=== PATIENT | male | born 1995 | race Caucasian/White ===

== ENCOUNTER 2017-04-14 19:05 | Inpatient (IN) | payer MEDICAID, OTHER ==
[~2017-04-14] VITALS: Ht 175.3 cm; Wt 90.2 kg
[2017-04-14 20:13] LABS: Urine RBC None Seen /hpf (0 - 3)
[2017-04-14 20:15] LABS: Prothrombin Time 10.9 sec (9.37-12.3)
[2017-04-14 20:23] LABS: Basophils # (auto) 0 uL; Basophils % (auto) 0.1 % (0.0-2.0); CONDITION Y; Eosinophils # (auto) 0.2 uL; Eosinophils % (auto) 4.1 % (0.0-7.0); Hematocrit 48.1 % (41.0-53.0); Lymphocytes # (auto) 1.5 uL; Mean Corpuscular Hgb Conc. 35.3 g/dL (32.0-36.0); Mean Corpuscular Volume 96.2 fL (80.0-100.0); Mean Platelet Volume 12.4 fL (7.4-10.4); Monocytes # (auto) 0.7 uL; Monocytes % (auto) 15.1 % (0.0-12.0); Neutrophils # (auto) 2.1 uL; Neutrophils % (auto) 46.7 % (37.0-80.0); Platelet Count (auto) 119 10^3/uL (140-450); Red Cell Distribution Width 14.5 % (11.6-16.0); SUSPECT SEE PRINTOUT; White Blood Cell 4.5 10^3/uL (4.4-10.8)
[2017-04-14 20:30] LABS: Albumin 3.5 g/dL (3.4-5.0); BUN/Creatinine Ratio 32.4; Calcium 9.6 mg/dL (8.5-10.1); Potassium 3.4 mmol/L (3.5-5.1)
[2017-04-14 20:33] LABS: Bilirubin, Total 0.2 mg/dL (0.2-1.0)
[2017-04-14 20:55] LABS: Urine Bilirubin Negative (Negative); Urine Blood Negative /uL (Negative); Urine Color Yellow (Yellow); Urine Glucose Normal (Normal); Urine Ketone Negative (Negative); Urine Nitrite Negative (Negative); Urine Urobilinogen Normal (Negative)
[2017-04-14] MEDS ORDERED: SODIUM CHLORIDE 0.9% 1,000 ML IV ONE (21:00)
[2017-04-14 21:06] LABS: Platelet Clumps FEW
[2017-04-14 21:19] LABS: Allen Test Yes; Blood 02Sat 87.4 % (96-100); Blood COHb 0.2 % (0.5-1.5); Blood MetHb 0.2 % (0.0-1.5); HCO3 24.4 mmol/L (22-26.0); HHb 12.5 % (0.0-5.0); MODE TRACH COLLAR; O2Hb 87.1 % (94.0-97.0); PCO2 52.3 mmHg (35.0-45.0); PO2 58.6 mmHg (80.0-100.0); PO2(T) 42.9 mmHg (80.0-100.0); Sample Type Arterial; pH 7.286 (7.350-7.450)
[2017-04-15] MEDS ORDERED: IPRATROPIUM BROM 0.5 MG/2.5ML INH SOL ONE (00:59)
[2017-04-15] MEDS ORDERED: ALBUTEROL SULF 2.5 MG/0.5ML(0.5%) NEB SOLN ONE (00:59)
[2017-04-15] MEDS ORDERED: BUDESONIDE (INHALATION) 0.5 MG/2 ML NEB ONE (01:04)
[2017-04-15] MEDS ORDERED: BUDESONIDE (INHALATION) 0.5 MG/2 ML NEB NEB ONE (01:15)
[2017-04-15] MEDS ORDERED: SODIUM CHLORIDE 0.9% 1,000 ML IV ONE (01:15)
[2017-04-15] MEDS ORDERED: ALBUTEROL SULF 2.5 MG/0.5ML(0.5%) NEB SOLN NEB ONE (01:15)
[2017-04-15] MEDS ORDERED: IPRATROPIUM BROM 0.5 MG/2.5ML INH SOL NEB ONE (01:15)
[2017-04-15] MEDS ORDERED: METOCLOPRAMIDE HCL 10 MG/10ml ORAL soln GT PRN (04:30)
[2017-04-15] MEDS ORDERED: LACTULOSE 20Gm/30ML SOLN PO PRN (04:30)
[2017-04-15] MEDS ORDERED: cefTRIAXone 1GM/50ML D5W 50 ML IV ONE (04:30)
[2017-04-15] MEDS ORDERED: MORPHINE SULFATE 4 MG/ML SYRG IV PRN (04:30)
[2017-04-15] MEDS ORDERED: NITROGLYCERIN 0.4 MG SL TAB SL PRN (04:30)
[2017-04-15] MEDS ORDERED: BACLOFEN 10 MG TAB GT SCH (06:00)
[2017-04-15] MEDS: ALBUTEROL SULF 2.5 MG/0.5ML(0.5%) NEB SOLN NEB SCH ×5 (07:05→22:39)
[2017-04-15] MEDS: IPRATROPIUM BROM 0.5 MG/2.5ML INH SOL NEB SCH ×4 (07:05→22:39)
[2017-04-15] MEDS: cefTRIAXone 1GM/50ML D5W 50 ML IV SCH (09:00)
[2017-04-15 09:05] VITALS: BP 103/63
[2017-04-15] MEDS ORDERED: TOPIRAMATE 100 MG TAB GT SCH (10:00)
[2017-04-15] MEDS: GLYCOPYRROLATE 1 MG GT SCH (10:00)
[2017-04-15] MEDS ORDERED: PHENobarbital 20 MG/5 ML UD GT SCH ×2 (10:00)
[2017-04-15] MEDS: PANTOPRAZOLE SODIUM 40 MG/10 ML VIAL IV SCH (10:23)
[2017-04-15] MEDS: SOD CHL 0.9%/ KCL 20MEQ 1,000 ML IV SCH (12:30)
[2017-04-15 13:04] LABS: Allen Test Yes; Base Excess -3.3 mmol/L (-2.0-2.0); Blood 02Sat 94.3 % (96-100); Blood COHb 0.1 % (0.5-1.5); Blood MetHb 0.3 % (0.0-1.5); HCO3 22.7 mmol/L (22-26.0); HHb 5.7 % (0.0-5.0); MODE TRACH COLLAR; O2Hb 93.9 % (94.0-97.0); PCO2 44.3 mmHg (35.0-45.0); PCO2(T) 44.3 mmHg (35.0-45.0); PO2 74.5 mmHg (80.0-100.0); PO2(T) 74.5 mmHg (80.0-100.0); Room 1018-ERT; Sample Type Arterial; pH 7.328 (7.350-7.450)
[2017-04-15] MEDS ORDERED: ERYTHROMYCIN LACTOBIONATE 250 MG in SODIUM CHL 0.9% 100 ML IV ONE (13:45)
[2017-04-15] MEDS ORDERED: METOCLOPRAMIDE HCL 5MG/ml INJ 2ml VIAL IV SCH (14:00)
[2017-04-15 20:00] VITALS: BP 104/71
[2017-04-15 22:00] VITALS: BP 104/71
[2017-04-15] MEDS: TOPIRAMATE 100 MG TAB GT SCH (22:32)
[2017-04-15] MEDS: BACLOFEN 10 MG TAB GT SCH (22:33)
[2017-04-16] MEDS: PHENobarbital 20 MG/5 ML UD GT SCH ×3 (00:27→21:41)
[2017-04-16] MEDS: SOD CHL 0.9%/ KCL 20MEQ 1,000 ML IV SCH ×2 (02:45→15:10)
[2017-04-16] MEDS: IPRATROPIUM BROM 0.5 MG/2.5ML INH SOL NEB SCH ×6 (02:50→23:01)
[2017-04-16] MEDS: ALBUTEROL SULF 2.5 MG/0.5ML(0.5%) NEB SOLN NEB SCH ×6 (02:50→23:01)
[2017-04-16 05:00] VITALS: BP 112/67
[2017-04-16 06:06] LABS: Basophils # (auto) 0 uL; Basophils % (auto) 0.3 % (0.0-2.0); CONDITION Y; Eosinophils # (auto) 0.2 uL; Eosinophils % (auto) 3.4 % (0.0-7.0); Hematocrit 43.6 % (41.0-53.0); Hemoglobin 15.2 g/dL (13.5-17.5); Lymphocytes # (auto) 1.3 uL; Lymphocytes % (auto) 27.4 % (10.0-50.0); Mean Corpuscular Hemoglobin 33.9 pg (28.0-32.0); Mean Corpuscular Hgb Conc. 34.8 g/dL (32.0-36.0); Mean Corpuscular Volume 97.5 fL (80.0-100.0); Mean Platelet Volume 12.3 fL (7.4-10.4); Monocytes # (auto) 0.4 uL; Neutrophils # (auto) 2.9 uL; Neutrophils % (auto) 59.9 % (37.0-80.0); Platelet Count (auto) 134 10^3/uL (140-450); Red Cell Distribution Width 14.6 % (11.6-16.0); SUSPECT SEE PRINTOUT; White Blood Cell 4.8 10^3/uL (4.4-10.8)
[2017-04-16 06:23] LABS: Albumin 2.9 g/dL (3.4-5.0); BUN/Creatinine Ratio 27.6; Bilirubin, Total 0.2 mg/dL (0.2-1.0); Calcium 8.5 mg/dL (8.5-10.1); Total Protein 7.3 g/dL (6.4-8.2)
[2017-04-16 07:04] LABS: Potassium 5.4 mmol/L (3.5-5.1)
[2017-04-16 08:00] VITALS: BP 100/61
[2017-04-16 09:00] VITALS: BP 100/61
[2017-04-16] MEDS ORDERED: ERYTHROMYCIN LACTOBIONATE 250 MG in SODIUM CHL 0.9% 100 ML IV SCH (10:00)
[2017-04-16] MEDS: GLYCOPYRROLATE 1 MG GT SCH (10:00)
[2017-04-16] MEDS: cefTRIAXone 1GM/50ML D5W 50 ML IV SCH (10:43)
[2017-04-16] MEDS: BACLOFEN 10 MG TAB GT SCH ×2 (10:43→21:41)
[2017-04-16] MEDS: PANTOPRAZOLE SODIUM 40 MG/10 ML VIAL IV SCH (10:43)
[2017-04-16] MEDS: TOPIRAMATE 100 MG TAB GT SCH ×2 (10:44→21:42)
[2017-04-16 13:00] VITALS: BP 120/70
[2017-04-16] MEDS: AZITHROMYCIN 500MG/D5W 250ML 250 ML IV SCH (15:30)
[2017-04-16 17:00] VITALS: BP 113/79
[2017-04-16] MEDS ORDERED: ACETYLCYSTEINE 10 %(100MG/ML) SOL 4ML NEB SCH (18:00)
[2017-04-16] MEDS ORDERED: ALBU0.084 (18:36)
[2017-04-16] MEDS ORDERED: BACL20TA (18:36)
[2017-04-16] MEDS ORDERED: METO5SOL (18:36)
[2017-04-16] MEDS ORDERED: BUDE0.253 (18:36)
[2017-04-16] MEDS ORDERED: TOPI100T68 (18:36)
[2017-04-16] MEDS ORDERED: GLYC1TAB18 (18:36)
[2017-04-16] MEDS: ERYTHROMYCIN 250 MG TAB PO SCH (21:42)
[2017-04-16 22:00] VITALS: BP 96/59
[2017-04-16] MEDS ORDERED: BUDESONIDE (INHALATION) 0.5 MG/2 ML NEB ONE (22:07)
[2017-04-16] MEDS: BUDESONIDE (INHALATION) 0.5 MG/2 ML NEB NEB SCH (22:59)
[2017-04-17] MEDS: ALBUTEROL SULF 2.5 MG/0.5ML(0.5%) NEB SOLN NEB SCH ×6 (02:23→22:46)
[2017-04-17] MEDS: IPRATROPIUM BROM 0.5 MG/2.5ML INH SOL NEB SCH ×6 (02:23→22:46)
[2017-04-17 05:00] VITALS: BP 92/51
[2017-04-17] MEDS: SOD CHL 0.9%/ KCL 20MEQ 1,000 ML IV SCH ×2 (05:55→17:50)
[2017-04-17] MEDS: ERYTHROMYCIN 250 MG TAB PO SCH (05:56)
[2017-04-17] MEDS: BUDESONIDE (INHALATION) 0.5 MG/2 ML NEB NEB SCH ×2 (06:34→22:46)
[2017-04-17 08:43] LABS: INR 0.98 (0.9-1.15); Prothrombin Time 10.7 sec (9.37-12.3)
[2017-04-17 08:50] LABS: Basophils # (auto) 0 uL; Basophils % (auto) 0.3 % (0.0-2.0); CONDITION Y; Eosinophils # (auto) 0.2 uL; Hematocrit 44.2 % (41.0-53.0); Hemoglobin 15.5 g/dL (13.5-17.5); Lymphocytes # (auto) 1.2 uL; Lymphocytes % (auto) 19.5 % (10.0-50.0); Mean Corpuscular Hgb Conc. 35.1 g/dL (32.0-36.0); Mean Corpuscular Volume 96.8 fL (80.0-100.0); Mean Platelet Volume 12.1 fL (7.4-10.4); Monocytes # (auto) 0.6 uL; Monocytes % (auto) 9.3 % (0.0-12.0); Neutrophils # (auto) 4.2 uL; Neutrophils % (auto) 67.9 % (37.0-80.0); Platelet Count (auto) 132 10^3/uL (140-450); Red Cell Distribution Width 14.3 % (11.6-16.0); SUSPECT SEE PRINTOUT; White Blood Cell 6.2 10^3/uL (4.4-10.8)
[2017-04-17 09:00] VITALS: BP 108/87
[2017-04-17 09:05] LABS: Albumin 3.3 g/dL (3.4-5.0); BUN/Creatinine Ratio 11.6; Calcium 8.6 mg/dL (8.5-10.1); Magnesium 1.7 mg/dL (1.6-2.6); Potassium 4.3 mmol/L (3.5-5.1)
[2017-04-17 09:08] LABS: Bilirubin, Total 0.2 mg/dL (0.2-1.0); Total Protein 7.8 g/dL (6.4-8.2)
[2017-04-17] MEDS: PANTOPRAZOLE SODIUM 40 MG/10 ML VIAL IV SCH (09:33)
[2017-04-17] MEDS: cefTRIAXone 1GM/50ML D5W 50 ML IV SCH (09:34)
[2017-04-17] MEDS: AZITHROMYCIN 500MG/D5W 250ML 250 ML IV SCH (09:34)
[2017-04-17] MEDS: BACLOFEN 10 MG TAB GT SCH ×2 (09:34→21:44)
[2017-04-17] MEDS: TOPIRAMATE 100 MG TAB GT SCH ×2 (09:35→21:44)
[2017-04-17] MEDS: PHENobarbital 20 MG/5 ML UD GT SCH ×2 (09:36→21:45)
[2017-04-17] MEDS: GLYCOPYRROLATE 1 MG GT SCH (09:36)
[2017-04-17 13:00] VITALS: BP 82/43
[2017-04-17 17:00] VITALS: BP 112/75
[2017-04-17 20:00] VITALS: BP 109/66
[2017-04-17] MEDS: ERYTHROMYCIN LACTOBIONATE 250 MG in SODIUM CHL 0.9% 100 ML IV SCH (21:45)
[2017-04-17 21:54] VITALS: BP 109/66
[2017-04-18] MEDS: IPRATROPIUM BROM 0.5 MG/2.5ML INH SOL NEB SCH ×6 (02:48→22:15)
[2017-04-18] MEDS: ALBUTEROL SULF 2.5 MG/0.5ML(0.5%) NEB SOLN NEB SCH ×6 (02:48→22:15)
[2017-04-18 05:09] VITALS: BP 117/80
[2017-04-18] MEDS: SOD CHL 0.9%/ KCL 20MEQ 1,000 ML IV SCH ×2 (07:10→20:30)
[2017-04-18 07:41] LABS: Albumin 3.2 g/dL (3.4-5.0); Bilirubin, Total 0.1 mg/dL (0.2-1.0); Calcium 8.8 mg/dL (8.5-10.1); Magnesium 2.1 mg/dL (1.6-2.6); Potassium 3.9 mmol/L (3.5-5.1); Total Protein 6.9 g/dL (6.4-8.2)
[2017-04-18 09:00] VITALS: BP 103/75
[2017-04-18] MEDS: cefTRIAXone 1GM/50ML D5W 50 ML IV SCH (09:37)
[2017-04-18] MEDS: PANTOPRAZOLE SODIUM 40 MG/10 ML VIAL IV SCH (09:41)
[2017-04-18] MEDS: BACLOFEN 10 MG TAB GT SCH ×2 (09:46→22:47)
[2017-04-18] MEDS: TOPIRAMATE 100 MG TAB GT SCH ×2 (09:47→22:46)
[2017-04-18] MEDS: GLYCOPYRROLATE 1 MG GT SCH (09:49)
[2017-04-18] MEDS: PHENobarbital 20 MG/5 ML UD GT SCH ×2 (09:49→22:47)
[2017-04-18] MEDS: ERYTHROMYCIN LACTOBIONATE 250 MG in SODIUM CHL 0.9% 100 ML IV SCH ×2 (09:58→18:41)
[2017-04-18] MEDS ORDERED: AZITHROMYCIN 500MG/D5W 250ML 250 ML IV SCH ×2 (10:00→11:00)
[2017-04-18] MEDS: BUDESONIDE (INHALATION) 0.5 MG/2 ML NEB NEB SCH ×2 (11:18→22:15)
[2017-04-18 13:00] VITALS: BP 100/54
[2017-04-18 15:36] LABS: Basophils # (auto) 0 uL; Basophils % (auto) 0.1 % (0.0-2.0); CONDITION Y; Eosinophils # (auto) 0.2 uL; Eosinophils % (auto) 3.1 % (0.0-7.0); Hematocrit 43.1 % (41.0-53.0); Hemoglobin 14.8 g/dL (13.5-17.5); Lymphocytes # (auto) 1.7 uL; Lymphocytes % (auto) 25.4 % (10.0-50.0); Mean Corpuscular Hemoglobin 33.5 pg (28.0-32.0); Mean Corpuscular Hgb Conc. 34.4 g/dL (32.0-36.0); Mean Corpuscular Volume 97.4 fL (80.0-100.0); Mean Platelet Volume 11.5 fL (7.4-10.4); Monocytes # (auto) 0.8 uL; Monocytes % (auto) 12.7 % (0.0-12.0); Neutrophils # (auto) 3.9 uL; Neutrophils % (auto) 58.7 % (37.0-80.0); Platelet Count (auto) 143 10^3/uL (140-450); Red Cell Distribution Width 14.2 % (11.6-16.0); SUSPECT SEE PRINTOUT; White Blood Cell 6.6 10^3/uL (4.4-10.8)
[2017-04-18 15:49] LABS: INR 1.02 (0.9-1.15); Prothrombin Time 11.1 sec (9.37-12.3)
[2017-04-18 17:00] VITALS: BP 111/51
[2017-04-18 20:00] VITALS: BP 106/68
[2017-04-18 21:43] VITALS: BP 106/68
[2017-04-19] MEDS: ERYTHROMYCIN LACTOBIONATE 250 MG in SODIUM CHL 0.9% 100 ML IV SCH ×3 (02:31→18:32)
[2017-04-19] MEDS: ALBUTEROL SULF 2.5 MG/0.5ML(0.5%) NEB SOLN NEB SCH ×6 (03:35→22:24)
[2017-04-19] MEDS: IPRATROPIUM BROM 0.5 MG/2.5ML INH SOL NEB SCH ×6 (03:35→22:24)
[2017-04-19 05:00] VITALS: BP 92/41
[2017-04-19 06:08] LABS: Calcium 8.1 mg/dL (8.5-10.1); Magnesium 2.4 mg/dL (1.6-2.6)
[2017-04-19 06:11] LABS: BUN/Creatinine Ratio 32.1
[2017-04-19 06:13] LABS: Bilirubin, Total 0.2 mg/dL (0.2-1.0)
[2017-04-19 09:00] VITALS: BP 115/56
[2017-04-19] MEDS: SOD CHL 0.9%/ KCL 20MEQ 1,000 ML IV SCH ×2 (09:50→20:00)
[2017-04-19] MEDS: GLYCOPYRROLATE 1 MG GT SCH (10:00)
[2017-04-19] MEDS: BACLOFEN 10 MG TAB GT SCH ×2 (10:17→22:00)
[2017-04-19] MEDS: PANTOPRAZOLE SODIUM 40 MG/10 ML VIAL IV SCH (10:17)
[2017-04-19] MEDS: PHENobarbital 20 MG/5 ML UD GT SCH ×2 (10:17→21:59)
[2017-04-19] MEDS: TOPIRAMATE 100 MG TAB GT SCH ×2 (10:18→21:59)
[2017-04-19] MEDS: BUDESONIDE (INHALATION) 0.5 MG/2 ML NEB NEB SCH ×2 (11:04→22:23)
[2017-04-19 13:00] VITALS: BP 86/65
[2017-04-19 14:05] LABS: Allen Test Yes; Base Excess -2.1 mmol/L (-2.0-2.0); Blood 02Sat 95.8 % (96-100); Blood COHb 0.3 % (0.5-1.5); Blood MetHb 0.4 % (0.0-1.5); HHb 4.2 % (0.0-5.0); MODE ROOM AIR; O2Hb 95.1 % (94.0-97.0); PCO2 51.5 mmHg (35.0-45.0); PCO2(T) 51.5 mmHg (35.0-45.0); Room 0277T; Sample Type Arterial; pH 7.304 (7.350-7.450)
[2017-04-19 17:00] VITALS: BP 124/80
[2017-04-19 22:00] VITALS: BP 111/51
[2017-04-20] MEDS: IPRATROPIUM BROM 0.5 MG/2.5ML INH SOL NEB SCH ×6 (02:18→22:24)
[2017-04-20] MEDS: ALBUTEROL SULF 2.5 MG/0.5ML(0.5%) NEB SOLN NEB SCH ×6 (02:18→22:24)
[2017-04-20] MEDS: ERYTHROMYCIN LACTOBIONATE 250 MG in SODIUM CHL 0.9% 100 ML IV SCH ×3 (02:23→18:36)
[2017-04-20] MEDS ORDERED: ALBUMIN 5% 250 ML IV ONE (04:30)
[2017-04-20 05:30] VITALS: BP 91/49
[2017-04-20 06:46] LABS: Basophils # (auto) 0 uL; Basophils % (auto) 0.2 % (0.0-2.0); CONDITION Y; Eosinophils # (auto) 0.2 uL; Eosinophils % (auto) 4.4 % (0.0-7.0); Hematocrit 38.9 % (41.0-53.0); Hemoglobin 13.4 g/dL (13.5-17.5); Lymphocytes # (auto) 1.4 uL; Lymphocytes % (auto) 32.5 % (10.0-50.0); Mean Corpuscular Hemoglobin 33.6 pg (28.0-32.0); Mean Corpuscular Hgb Conc. 34.3 g/dL (32.0-36.0); Mean Corpuscular Volume 97.9 fL (80.0-100.0); Mean Platelet Volume 11.9 fL (7.4-10.4); Monocytes # (auto) 0.6 uL; Monocytes % (auto) 14.4 % (0.0-12.0); Neutrophils # (auto) 2.1 uL; Neutrophils % (auto) 48.5 % (37.0-80.0); Platelet Count (auto) 131 10^3/uL (140-450); Red Cell Distribution Width 14.4 % (11.6-16.0); SUSPECT SEE PRINTOUT; White Blood Cell 4.4 10^3/uL (4.4-10.8)
[2017-04-20 06:54] LABS: INR 0.99 (0.9-1.15); Prothrombin Time 10.8 sec (9.37-12.3)
[2017-04-20 07:10] LABS: BUN/Creatinine Ratio 36.8; Bilirubin, Total 0.1 mg/dL (0.2-1.0); Calcium 8.6 mg/dL (8.5-10.1); Magnesium 2.5 mg/dL (1.6-2.6); Potassium 3.8 mmol/L (3.5-5.1); Total Protein 6.5 g/dL (6.4-8.2)
[2017-04-20] MEDS: BUDESONIDE (INHALATION) 0.5 MG/2 ML NEB NEB SCH ×2 (07:15→22:24)
[2017-04-20 08:00] VITALS: BP 130/72
[2017-04-20 09:00] VITALS: BP 130/72
[2017-04-20 09:02] LABS: Platelet Clumps FEW; Platelet Estimate Adequate
[2017-04-20] MEDS: GLYCOPYRROLATE 1 MG GT SCH (10:00)
[2017-04-20] MEDS: PANTOPRAZOLE SODIUM 40 MG/10 ML VIAL IV SCH (10:12)
[2017-04-20] MEDS: BACLOFEN 10 MG TAB GT SCH ×2 (10:13→22:07)
[2017-04-20] MEDS: PHENobarbital 20 MG/5 ML UD GT SCH ×2 (10:13→22:07)
[2017-04-20] MEDS: TOPIRAMATE 100 MG TAB GT SCH ×2 (10:14→22:07)
[2017-04-20 13:39] VITALS: BP 101/67
[2017-04-20] MEDS: SOD CHL 0.9%/ KCL 20MEQ 1,000 ML IV SCH (14:13)
[2017-04-20 17:00] VITALS: BP 106/78
[2017-04-20 22:23] VITALS: BP 120/72
[2017-04-21] VITALS (7 sets, daily range): BP systolic 93–108; BP diastolic 54–74
[2017-04-21] MEDS: ALBUTEROL SULF 2.5 MG/0.5ML(0.5%) NEB SOLN NEB SCH ×4 (02:32→14:46)
[2017-04-21] MEDS: IPRATROPIUM BROM 0.5 MG/2.5ML INH SOL NEB SCH ×4 (02:32→14:46)
[2017-04-21] MEDS: SOD CHL 0.9%/ KCL 20MEQ 1,000 ML IV SCH ×2 (04:55→15:10)
[2017-04-21] MEDS: ERYTHROMYCIN LACTOBIONATE 250 MG in SODIUM CHL 0.9% 100 ML IV SCH ×3 (04:55→17:19)
[2017-04-21] MEDS: BUDESONIDE (INHALATION) 0.5 MG/2 ML NEB NEB SCH (07:15)
[2017-04-21] MEDS: GLYCOPYRROLATE 1 MG GT SCH (10:00)
[2017-04-21] MEDS: PANTOPRAZOLE SODIUM 40 MG/10 ML VIAL IV SCH (10:46)
[2017-04-21] MEDS: BACLOFEN 10 MG TAB GT SCH (10:48)
[2017-04-21] MEDS: TOPIRAMATE 100 MG TAB GT SCH (10:48)
[2017-04-21] MEDS: PHENobarbital 20 MG/5 ML UD GT SCH (10:50)
== END 2017-04-21 18:15 | disposition home health service (06) | DRG 812 ==
LOC: EDBD 19:05 → ER 19:10 → TELE 19:11 → TELE-WESTW 04-15 15:49
PROVIDERS: ADMIT Family Medicine; ATTEND Internal Medicine
DX: T50.901A Poisoning by unspecified drugs, medicaments and biological substances, accidental (unintentional), initial encounter (principal); J96.21 Acute and chronic respiratory failure with hypoxia; G93.41 Metabolic encephalopathy; Q04.3 Other reduction deformities of brain; Z93.0 Tracheostomy status; K31.84 Gastroparesis; F72 Severe intellectual disabilities; J45.901 Unspecified asthma with (acute) exacerbation; M41.9 Scoliosis, unspecified; E86.0 Dehydration; F79 Unspecified intellectual disabilities; Q02 Microcephaly; Q03.1 Atresia of foramina of Magendie and Luschka; G40.909 Epilepsy, unspecified, not intractable, without status epilepticus; Z88.5 Allergy status to narcotic agent; Z71.89 Other specified counseling; Y92.89 Other specified places as the place of occurrence of the external cause; R62.50 Unspecified lack of expected normal physiological development in childhood
CPT/HCPCS: 36415; 36600; 51702; 70450; 71010; 71250; 80053; 80307; 81001; 82805; 83605; 83735; 84484; 85025; 85379; 85610; 87040; 87070; 87077; 87081; 87186; 87205; 93005; 93306; 94640; 95819; 96361; 96365; 96366; 96375; C9113; J0696